=== PATIENT | male | born 1975 ===

== ENCOUNTER 2022-04-25 22:11 | Emergency (ER) | payer SELFPAY ==
[2022-04-25 22:24] VITALS: BP 158/100
== END 2022-04-26 00:45 | disposition left against medical advice (07) ==
LOC: ED 22:11
DX: I10 Essential (primary) hypertension (principal); Z53.21 Procedure and treatment not carried out due to patient leaving prior to being seen by health care provider

== ENCOUNTER 2022-04-27 01:39 | Emergency (ER) | payer SELFPAY ==
[2022-04-27] MEDS ORDERED: BUTALB/ACETAMINOPHEN/CAFFEINE TAB PO ONE (10:59)
[2022-04-27] MEDS ORDERED: cloNIDine 0.2 MG TAB PO ONE (10:59)
--- NOTE | 2022-04-27 11:36 | Emergency Department Report ---
ED Headache HPI - General Chief Complaint: High BP Stated Complaint: BLOOD PRESSURE HIGH Time Seen by Provider: 04/27/22 10:34 - History of Present Illness Initial Comments: 46-year-old black male with a past medical history of hypertension and asthma presents to the emergency department for evaluation of headache. He states that for several weeks he has been out of his hypertension medication and then yesterday he developed headache that he rates 6 out of 10. He states that headache was to his right side only but denies nausea, vomiting, vision changes, and dizziness. He states that he did have some photophobia. He states that he did not take any medication for his headache. Timing/Duration: 24 hours Quality: moderate Head Injury Location: other (Right side only) Associated Symptoms: denies: confusion, fatigue, facial pain, fever/chills, flushing, loss of consciousness, nausea/vomiting, nasal congestion, nasal d rainage, numbness in legs/feet, rash, seizures, sinus infection, stiff neck, vision changes, weakness Allergies/Adverse Reactions: Allergies Penicillins Allergy (Verified 07/02/16 06:29) Anaphylaxis Home Medications: Ambulatory Orders Lisinopril [Zestril] 5 mg PO BID #60 tab 04/27/22 ED Review of Systems ROS: Stated complaint: BLOOD PRESSURE HIGH Other details as noted in HPI Comment: All other systems reviewed and negative Eyes: denies: eye pain, vision change ENT: denies: congestion Respiratory: denies: shortness of breath, SOB with exertion Cardiovascular: denies: chest pain, palpitations Gastrointestinal: denies: abdominal pain, nausea, vomiting Musculoskeletal: denies: back pain Neurological: headache. denies: weakness, numbness, paresthesias, confusion, abnormal gait, vertigo ED Past Medical Hx - Past Medical History Additional medical history: Benign Vertigo - Social History Smoking Status: Current Every Day Smoker Substance Use Type: None - Medications Home Medications: Home Medications Medication Instructions Recorded Confirmed Last Taken Type Lisinopril [Zestril] 5 mg PO BID #60 tab 04/27/22 Unknown Rx ED Physical Exam - General Limitations: No Limitations General appearance: alert, in no apparent distress - Head Head exam: Present: atraumatic, normocephalic - Eye Eye exam: Present: normal appearance, PERRL, EOMI. Absent: conjunctival injection, periorbital swelling, periorbital tenderness - Neck Neck exam: Present: normal inspection, full ROM. Absent: tenderness, lymp hadenopathy - Respiratory Respiratory exam: Present: normal lung sounds bilaterally. Absent: respiratory distress, wheezes, rales, rhonchi, stridor, chest wall tenderness - Cardiovascular Cardiovascular Exam: Present: regular rate, normal heart sounds - GI/Abdominal GI/Abdominal exam: Present: soft, normal bowel sounds. Absent: distended, tenderness, rebound, rigid - Extremities Exam Extremities exam: Present: normal inspection, full ROM, normal capillary refill. Absent: tenderness, pedal edema, joint swelling, calf tenderness - Back Exam Back exam: Present: normal inspection. Absent: CVA tenderness (R), CVA tenderness (L) - Neurological Exam Neurological exam: Present: alert, oriented X3, CN II-XII intact, normal gait, reflexes normal. Absent: motor sensory deficit - Expanded Neurological Exam Expanded Patient oriented to: Present: person, place, time Speech: Present: fluid speech Cranial nerves: EOM's Intact: Normal, Gag Reflex: Normal, Tongue Deviation: Normal, Nystagmus: Normal, Facial Sensation: Normal Cerebellar function: [place]: Normal Sensory exam: Upper Extremity Light Touch: Normal, Upper Extremity Temperature: Normal, Lower Extremity Light Touch: Normal, Lower Extremity Temperature: Normal Motor strength exam: RUE: 5, LUE: 5, RLE: 5, LLE: 5 Best Eye Response ([place]): (4) open spontaneously Best Motor Response ([place]): (6) obeys commands Best Verbal Response ([place]): (5) oriented [place] Total: 15 - Psychiatric Psychiatric exam: Present: normal affect, normal mood - Skin Skin exam: Present: warm, dry, intact, normal color ED Course Vital Signs 04/27/22 04/27/22 01:53 12:00 Temperature 98.0 F Pulse Rate 82 64 Respiratory 18 16 Rate Blood Pressure 162/108 Blood Pressure 130/91 [Left] O2 Sat by Pulse 98 98 Oximetry - Reevaluation(s) Reevaluation #1: 04/27/22 12:16 Headache resolved and blood pressure improved. ED Medical Decision Making - Medical Decision Making 46-year-old black male with a past medical history of hypertension and asthma presents to the emergency department for evaluation of headache. He states that for several weeks he has been out of his hypertension medication and then yesterday he developed headache that he rates 6 out of 10. He states that headache was to his right side only but denies nausea, vomiting, vision changes, and dizziness. He states that he did have some photophobia. He states that he did not take any medication for his headache. Physical exam unremarkable. Headache resolved and blood pressure improved. Patient was given refill of lisinopril and advised to follow-up with his primary care provider for further evaluation and management and return to the emergency department as needed. He verbalizes understanding of and agreement with plan of care. Critical care attestation.: If time is entered above; I have spent that time in minutes in the direct care of this critically ill patient, excluding procedure time. ED Disposition Clinical Impression: Elevated blood pressure reading, Medication refill Headache Qualifiers: Headache type: unspecified Headache chronicity pattern: acute headache Intractability: not intractable Qualified Code(s): R51.9 - Headache, unspecified Disposition: 01 HOME / SELF CARE / HOMELESS Is pt being admited?: No Does the pt Need Aspirin: No Condition: Stable Instructions: Hypertension, Adult, [id number], General Headache Without Cause, [id number], Managing Your Hypertension Additional Instructions: Take medications as prescribed. Follow-up with your primary care provider if no improvement or worsening symptoms. Return to the emergency department as needed. Prescriptions: Lisinopril [Zestril] 5 mg PO BID #60 tab Referrals: YOBANY WICK MD [Staff Physician] - 3-5 Days Forms: Work/School Release Form(ED) Time of Disposition: 12:19
[2022-04-27 12:02] VITALS: BP 130/91
== END 2022-04-27 12:50 | disposition home or self-care (01) ==
LOC: ED 01:39
DX: R03.0 Elevated blood-pressure reading, without diagnosis of hypertension (principal); R51.9 Headache, unspecified; Z76.0 Encounter for issue of repeat prescription; F17.200 Nicotine dependence, unspecified, uncomplicated; I10 Essential (primary) hypertension; J45.909 Unspecified asthma, uncomplicated; Z88.0 Allergy status to penicillin; Z79.899 Other long term (current) drug therapy
CPT/HCPCS: 99282

== ENCOUNTER 2022-05-08 02:08 | Emergency (ER) | payer SELFPAY ==
--- NOTE | 2022-05-08 06:16 | Emergency Department Report ---
ED General Adult HPI - General Chief complaint: High BP Stated complaint: BPH Time Seen by Provider: 05/08/22 06:11 Source: patient Mode of arrival: Ambulatory Limitations: No Limitations - History of Present Illness Initial comments: Patient 46-year-old male with history of hypertension usually controlled with lisinopril however patient is out of lisinopril. Patient denies chest pain there is no dizziness no headache no lightheadedness no nausea vomiting no diaphoresis no shortness of breath. Patient is ANO x3 patient is ambulatory with steady gait patient is with no acute distress. Requesting medication refill. - Related Data Previous Rx's Medication Instructions Recorded Last Taken Type Lisinopril [Zestril] 5 mg PO BID #60 tab 04/27/22 Unknown Rx lisinopriL [Zestril TAB] 10 mg PO QDAY #30 tablet 05/08/22 Unknown Rx Allergies Allergy/AdvReac Type Severity Reaction Status Date / Time Penicillins Allergy Anaphylaxis Verified 07/02/16 06:29 ED Review of Systems ROS: Stated complaint: BPH Other details as noted in HPI Constitutional: denies: chills, fever Eyes: denies: eye pain, eye discharge, vision change ENT: denies: ear pain, throat pain Respiratory: denies: cough, shortness of breath, wheezing Cardiovascular: denies: chest pain, palpitations Endocrine: no symptoms reported Gastrointestinal: denies: abdominal pain, nausea, diarrhea Genitourinary: denies: urgency, dysuria Musculoskeletal: denies: back pain, joint swelling, arthralgia Skin: denies: rash, lesions Neurological: denies: headache, weakness, numbness, paresthesias, confusion, vertigo Psychiatric: denies: anxiety, depression Hematological/Lymphatic: denies: easy bleeding, easy bruising ED Past Medical Hx - Past Medical History Hx Hypertension: Yes Additional medical history: Benign Vertigo - Social History Smoking Status: Current Every Day Smoker Substance Use Type: None - Medications Home Medications: Home Medications Medication Instructions Recorded Confirmed Last Taken Type Lisinopril [Zestril] 5 mg PO BID #60 tab 04/27/22 Unknown Rx lisinopriL [Zestril TAB] 10 mg PO QDAY #30 tablet 05/08/22 Unknown Rx ED Physical Exam - General Limitations: No Limitations General appearance: alert, in no apparent distress - Head Head exam: Present: normocephalic, normal inspection - Eye Eye exam: Present: PERRL, EOMI Pupils: Present: normal accommodation - ENT ENT exam: Present: mucous membranes moist - Neck Neck exam: Present: normal inspection, full ROM. Absent: tenderness - Respiratory Respiratory exam: Present: normal lung sounds bilaterally. Absent: respiratory distress, wheezes, stridor - Cardiovascular Cardiovascular Exam: Present: regular rate, normal rhythm, normal heart sounds. Absent: systolic murmur, diastolic murmur, rubs, gallop - GI/Abdominal GI/Abdominal exam: Present: soft, normal bowel sounds. Absent: distended, tenderness - Rectal Rectal exam: Present: deferred - Extremities Exam Extremities exam: Present: normal inspection, full ROM, normal capillary refill. Absent: tenderness - Back Exam Back exam: Present: normal inspection, full ROM. Absent: CVA tenderness (R), CVA tenderness (L) - Neurological Exam Neurological exam: Present: alert, oriented X3, CN II-XII intact, normal gait - Expanded Neurological Exam Expanded Patient oriented to: Present: person, place, time Speech: Present: fluid speech Motor strength exam: RUE: 5, LUE: 5, RLE: 5, LLE: 5 Best Eye Response ([place]): (4) open spontaneously Best Motor Response ([place]): (6) obeys commands Best Verbal Response ([place]): (5) oriented [place] Total: 15 - Psychiatric Psychiatric exam: Present: normal affect, normal mood - Skin Skin exam: Present: warm, dry, intact, normal color. Absent: rash ED Course Vital Signs 05/08/22 02:44 Temperature 98.2 F Pulse Rate 77 Respiratory 18 Rate Blood Pressure 152/102 [Right] O2 Sat by Pulse 99 Oximetry ED Medical Decision Making - Medical Decision Making This is asymptomatic hypertension plan refill lisinopril as requested. Last dose 2 weeks ago. Patient will follow-up with primary care in 2 to 3 days. Last BUN/creatinine normal noted 2 months ago. Patient DC to home in stable condition at this time. Critical care attestation.: If time is entered above; I have spent that time in minutes in the direct care of this critically ill patient, excluding procedure time. ED Disposition Clinical Impression: Benign essential HTN Disposition: HOME / SELF CARE / HOMELESS Is pt being admited?: No Does the pt Need Aspirin: No Condition: Stable Instructions: Hypertension (ED), Managing Your Hypertension, Form - Blood Pressure Record Sheet, Lisinopril tablets Additional Instructions: Take medications as prescribed, follow-up with your doctor in 2 to 3 days. Return to emergency department should symptoms worsen. Prescriptions: lisinopriL [Zestril TAB] 10 mg PO QDAY #30 tablet Referrals: [facility] [Provider Group] - 3-5 Days Forms: Work/School Release Form(ED) Time of Disposition: 06:17
[2022-05-08 06:48] VITALS: BP 146/92
== END 2022-05-08 06:30 | disposition home or self-care (01) ==
LOC: ED 02:08
DX: I10 Essential (primary) hypertension (principal); F17.200 Nicotine dependence, unspecified, uncomplicated; Z88.8 Allergy status to other drugs, medicaments and biological substances; Z79.899 Other long term (current) drug therapy
CPT/HCPCS: 99282